=== PATIENT | male | born 2000 | race Hispanic/Latino ===

== ENCOUNTER 2023-08-05 12:04 | Emergency (ER) | payer SELFPAY ==
[2023-08-05] MEDS ORDERED: ONDANSETRON 4 MG/2 ML VIAL ONE (13:47)
[2023-08-05] MEDS ORDERED: NA CHLORIDE 0.9% 1,000 ML ONE (13:47)
[2023-08-05 14:12] LABS: Specific Gravity 1.021 (1.005-1.030); Urine Bilirubin NEGATIVE (Negative); Urine Blood Negative (Negative); Urine Clarity Clear (Clear); Urine Color Light-Yellow (Yellow); Urine Glucose NEGATIVE (Negative); Urine Ketones NEGATIVE (Negative); Urine Microscopic Reflex YN NO UMIC; Urine Nitrite NEGATIVE (Negative); Urine Protein NEGATIVE (Negative); Urine Urobilinogen Normal (Normal)
[2023-08-05 14:15] LABS: Absolute Lymphocytes (CBC) 1.5 K/uL (0.7-4.9); Absolute Monocytes 0.4 K/uL (0.1-1.3); Absolute Neutrophil 5.1 K/uL (1.8-8.0); Basophils % 0.4 % (0-1.3); Eosinophils % 0.5 % (0-4.4); Hemoglobin 14.7 g/dL (13.6-17.9); Lymphocytes % 21.4 % (15.3-44.8); MCH 28.7 pg (27.0-35.0); MCHC 33.4 g/dL (32.0-36.0); MCV 86.1 fL (80-100); MPV 8.7 fL (7.6-11.3); Monocytes % 6.3 % (3.3-12.3); Neutrophils % 71.4 % (41.7-73.7); Platelets 329 thou/uL (152-406); RBC Red Blood Cell Count 5.11 M/uL (4.33-5.43); Red Cell Distribution Width 13.7 % (12.1-15.2)
[2023-08-05 14:31] LABS: Albumin 4.8 g/dL (3.4-5.0); Albumin/Globulin Ratio 1.5 (1.1-1.8); Anion Gap 8.6 mEq/L (5.0-15.0); Bilirubin Total 0.7 mg/dL (0.2-1.0); Globulin 3.2 g/dL (2.3-3.5); Potassium 3.6 mEq/L (3.5-5.1)
--- NOTE | 2023-08-05 15:33 | ER ---
Nurse's Notes [facility] Name: Valentino Leonard Age: 22 yrs Sex: Male : 2000 Arrival Date: 08/05/2023 Time: 12:04 Bed DX4 Private MD: Diagnosis: Noninfective gastroenteritis and colitis, unspecified Presentation: 08/04 12:39 Chief complaint: Patient states: Abdominal pain with N/V/D getting worse since Wednesday ll1 night. No known fever, but cold sweats. Coronavirus screen: Client denies travel out of the [place] in the last 14 days. At this time, the client does not indicate any symptoms associated with coronavirus-19. Ebola Screen: Patient denies travel to an Ebola-affected area in the 21 days before illness onset. Initial Sepsis Screen: Does the patient meet any 2 criteria? No. Patient's initial sepsis screen is negative. Does the patient have a suspected source of infection? No. Patient's initial sepsis screen is negative. Risk Assessment: Do you want to hurt yourself or someone else? Patient reports no desire to harm self or others. Onset of symptoms was July 24, 2023. 12:39 Method Of Arrival: Ambulatory ll1 12:39 Acuity: NAZIA 3 ll1 Triage Assessment: 12:39 General: Appears uncomfortable, Behavior is calm, cooperative, appropriate for age. ll1 Pain: Complains of pain in abdomen Quality of pain is described as aching, crampy. GI: Reports lower abdominal pain, upper abdominal pain, cramping, diarrhea, nausea, vomiting. Historical: - Allergies: 12:38 No Known Allergies; ll1 - Home Meds: 12:38 generic ADHD as needed [Active]; ll1 - PMHx: 12:38 ADD/ADHD; ll1 - PSHx: 12:38 None; ll1 - Immunization history:: Adult Immunizations up to date. - Infectious Disease History:: Denies. - Social history:: Smoking status: Reported history of juuling and/or vaping. Patient denies any tobacco usage or history of. Screenin:[address] [facility] ED Fall Risk Assessment (Adult) History of falling in the last 3 months, jl7 including since admission No falls in past 3 months (0 pts) Confusion or Disorientation No (0 pts) Intoxicated or Sedated No (0 pts) Impaired Gait No (0 pts) Mobility Assist Device Used No (0 pt) Altered Elimination No (0 pt) Score/Fall Risk Level 0 - 2 = Low Risk Oriented to surroundings, Maintained a safe environment. Abuse screen: Denies threats or abuse. Denies injuries from another. Nutritional screening: No deficits noted. Tuberculosis screening: No symptoms or risk factors identified. Assessment: 14:10 General: Appears in no apparent distress. uncomfortable, Behavior is calm, cooperative, jl7 appropriate for age. Pain: Denies pain. Neuro: Level of Consciousness is awake, alert, obeys commands, Oriented to person, place, time, situation. GI: not auscultated not palpated Reports diarrhea, nausea, Pt denies current pain at this time. Reports "I just ate a sandwich in the lobby so I'm probably about to go to the bathroom." Provider notified. Derm: Skin is pink, warm \\T\\ dry. Vital Signs: 12:39 BP 145 / 81; Pulse 81; Resp 17; Temp 97.6; Pulse Ox 99% ; Weight 75.75 kg; Height 5 ft. ll1 9 in. ; Pain 6/10; 14:10 BP 144 / 76; Pulse 62; Resp 15; Pulse Ox 100% ; Pain 0/10; jl7 12:39 Body Mass Index 24.66 (75.75 kg, 175.26 cm) ll1 12:39 Pain Scale: Adult ll1 14:10 Pain Scale: Adult jl7 ED Course: 12:29 Patient arrived in ED. mr 12:41 Triage completed. ll1 12:41 Arm band placed on. ll1 12:56 Raina [facility] FNP-C [facility]. kb 12:56 Samuel Beard MD is Attending Physician. kb 14:10 Patient has correct armband on for positive identification. Provided Education on: jl7 tests. 14:10 Initial lab(s) drawn, by me, sent to lab. Urine collected: clean catch specimen, clear. jl7 Inserted saline lock: 20 gauge in left antecubital area, using aseptic technique. Blood collected. 15:52 Kenneth Lofton RN is Primary Nurse. jl7 15:52 No provider procedures requiring assistance completed. IV discontinued, intact, jl7 bleeding controlled, No redness/swelling at site. Pressure dressing applied. Administered Medications: 14:00 Drug: NS 0.9% IV 1000 ml IV at 1 bolus Per protocol; 1000 mL bolus Route: IV; Rate: 1 jl7 bolus; Site: left antecubital; 15:00 Follow up: Response: No adverse reaction; IV Status: Completed infusion; IV Intake: jl7 1000ml 14:00 Drug: Ondansetron IVP 4 mg IVP once; over 2 minutes Route: IVP; Site: left antecubital; jl7 15:22 Follow up: Response: No adverse reaction jl7 Medication: 14:10 VIS not applicable for this client. jl7 Intake: 15:00 IV: 1000ml; Total: 1000ml. jl7 Outcome: 15:32 Discharge ordered by . jazlyn 15:52 Discharged to home ambulatory, 7 15:52 Condition: stable 15:52 Discharge instructions given to patient, Instructed on discharge instructions, follow up and referral plans. medication usage, Demonstrated understanding of instructions, follow-up care, medications, Prescriptions given X 2, 15:53 Patient left the ED. jl7 Signatures: Raina Garcia, GRANT WRITER-C GRANT WRITER-Clarissa Hilton, Reg Reg mr Kenneth Lofton, RN RN jl7 Marco Conroy RN RN ll1
--- NOTE | 2023-08-05 15:33 | EDPHYS ---
Physician Documentation [facility] Name: Valentino Leonard Age: 22 yrs Sex: Male : 2000 Arrival Date: 08/05/2023 Time: 12:04 Bed DX4 Private MD: ED Physician Samuel Beard HPI: 08/04 14:12 This 22 yrs old Male presents to ER via Ambulatory with complaints of kb Abdominal Pain, Vomiting/Diarrhea. 14:12 Patient is a 22-year-old male who presents for vomiting, diarrhea and abdominal kb cramping that started 6 days ago. Denies fever. States he drank heavily over the weekend so he believes that the symptoms are due to alcohol poisoning. States the symptoms get worse when he is at work in the heat, he is able to eat better at home.. Historical: - Allergies: 12:38 No Known Allergies; ll1 - Home Meds: 12:38 generic ADHD as needed [Active]; ll1 - PMHx: 12:38 ADD/ADHD; ll1 - PSHx: 12:38 None; ll1 - Immunization history:: Adult Immunizations up to date. - Infectious Disease History:: Denies. - Social history:: Smoking status: Reported history of juuling and/or vaping. Patient denies any tobacco usage or history of. ROS: 14:12 Constitutional: As per HPI kb Exam: 14:12 Constitutional: This is a well developed, well nourished patient who is awake, alert, kb and in no acute distress. Head/Face: Normocephalic, atraumatic. ENT: Moist Mucous membranes Cardiovascular: Regular rate Respiratory: Respirations even and unlabored. No increased work of breathing. Talking in full sentences Abdomen/GI: Soft, non-tender. No distention Skin: Warm, dry with normal turgor. Normal color. MS/ Extremity: Pulses equal, no cyanosis. Neurovascular intact. Full, normal range of motion. Neuro: Awake and alert, GCS 15, oriented to person, place, time, and situation. Moves all extremities. Normal gait. Vital Signs: 12:39 BP 145 / 81; Pulse 81; Resp 17; Temp 97.6; Pulse Ox 99% ; Weight 75.75 kg; Height 5 ft. ll1 9 in. ; Pain 6/10; 14:10 BP 144 / 76; Pulse 62; Resp 15; Pulse Ox 100% ; Pain 0/10; jl7 12:39 Body Mass Index 24.66 (75.75 kg, 175.26 cm) ll1 12:39 Pain Scale: Adult ll1 14:10 Pain Scale: Adult jl7 MDM: 12:57 Patient medically screened. kb 14:12 Differential diagnosis: gastritis, gastroesophageal reflux disease, non-specific abd kb pain. Data reviewed: vital signs, nurses notes. 14:53 Counseling: I had a detailed discussion with the patient and/or guardian regarding the kb historical points, exam findings, and any diagnostic results supporting the discharge/admit diagnosis, lab results, the need for outpatient follow up, a family practitioner, to return to the emergency department if symptoms worsen or persist or if there are any questions or concerns that arise at home. 14:55 Test considered but Not performed: CT: ct considered but vss, labs reassuring, pt has kb no abd tenderness, tolerating po intake. Pt ate sandwich in lobby prior to medications. 08/04 12:58 Order name: CBC with Diff; Complete Time: 14:20 kb 08/04 12:58 Order name: CMP; Complete Time: 14:31 kb 08/04 12:58 Order name: Lipase; Complete Time: 14:31 kb 08/04 12:58 Order name: Urinalysis w/ reflexes; Complete Time: 14:12 kb 08/04 12:58 Order name: IV Saline Lock; Complete Time: 14:10 kb 08/04 12:58 Order name: Labs collected and sent; Complete Time: 14:10 kb 08/04 14:57 Order name: Misc. Order: bring back to chairs for discharge please; Complete Time: 15:22kb Administered Medications: 14:00 Drug: NS 0.9% IV 1000 ml IV at 1 bolus Per protocol; 1000 mL bolus Route: IV; Rate: 1 jl7 bolus; Site: left antecubital; 15:00 Follow up: Response: No adverse reaction; IV Status: Completed infusion; IV Intake: jl7 1000ml 14:00 Drug: Ondansetron IVP 4 mg IVP once; over 2 minutes Route: IVP; Site: left antecubital; jl7 15:22 Follow up: Response: No adverse reaction jl7 Disposition: 18:55 Co-signature as Attending Physician, Samuel Beard MD I reviewed the patient's care rt provided by the Advanced Practice Provider and agree with the diagnosis and treatment plan. Disposition Summary: 08/05/23 15:32 Discharge Ordered Notes: Location: Home kb Condition: Stable kb Diagnosis - Noninfective gastroenteritis and colitis, unspecified kb Followup: kb - With: Emergency Department - When: As needed - Reason: Worsening of condition Followup: kb - With: Private Physician - When: 2 - 3 days - Reason: Recheck today's complaints, Continuance of care, Re-evaluation by your physician Discharge Instructions: - Food Choices to Help Relieve Diarrhea, Adult kb - Viral Gastroenteritis, Adult, [id number] kb - Discharge Summary Sheet ll1 Forms: - Medication Reconciliation Form kb - Antibiotic Education kb - Prescription Opioid Use kb - Patient Portal Instructions kb - Leadership Thank You Letter kb - Work release form ll1 Prescriptions: - Zofran 4 mg Oral tablet - take 1 tablet ORAL route every 6 hours As needed; 12 tablet; Refills: 0, kb Product Selection Permitted - dicyclomine 20 mg Oral tablet - take 1 tablet ORAL route 4 times per day As needed; 20 tablet; Refills: 0, kb Product Selection Permitted Signatures: Dispatcher [employer] EDMS Raina Garcia, CLINICAL BUSINESS MANAGER-C CLINICAL BUSINESS MANAGER-Kenneth Mchugh, RN RN jl7 Marco Conroy RN RN ll1 Samuel Beard MD MD rt Corrections: (The following items were deleted from the chart) 12:58 12:58 CBC+H.LAB.BRZ ordered. EDMS EDMS 12:58 12:58 COMPREHENSIVE METABOLIC PANEL+C.LAB.BRZ ordered. EDMS EDMS 12:58 12:58 LIPASE+C.LAB.BRZ ordered. EDMS EDMS 12:58 12:58 Urinalysis+U.LAB.BRZ ordered. EDMS EDMS
[2023-08-05 16:04] VITALS: BP 144/76; TEMP 97.6; O2SAT 100
== END 2023-08-05 15:53 | disposition home or self-care (01) ==
LOC: ER 12:04
DX: K52.9 Noninfective gastroenteritis and colitis, unspecified (principal); F17.290 Nicotine dependence, other tobacco product, uncomplicated
CPT/HCPCS: 36415; 80053; 81003; 83690; 85025; 96361; 96374; 99284; J2405; J7030

== ENCOUNTER 2023-10-12 12:31 | Emergency (ER) | payer SELFPAY ==
--- NOTE | 2023-10-12 13:20 | ER ---
Nurse's Notes [facility] Name: Valentino Leonard Age: 22 yrs Sex: Male : 2000 Arrival Date: 10/12/2023 Time: 12:31 Bed DX1 Private MD: Diagnosis: Migraine without aura, not intractable Presentation: 10/11 12:50 Chief complaint: Patient states: HEADACHE STARTED TODAY. HX OF MIGRAINES HAS NOT TAKEN db ANYTHING. JOB SENT HOME AND NEEDS WORK NOTE. INJURE RIGHT SHOULDER WEDNESDAY AND IS CAUSING SOME DISCOMFORT. NEEDS EVAL. Coronavirus screen: Client denies travel out of the [place] in the last 14 days. At this time, the client does not indicate any symptoms associated with coronavirus-19. Ebola Screen: Patient negative for fever greater than or equal to 101.5 degrees Fahrenheit, and additional compatible Ebola Virus Disease symptoms Patient denies exposure to infectious person. Patient denies travel to an Ebola-affected area in the 21 days before illness onset. No symptoms or risks identified at this time. Initial Sepsis Screen: Does the patient meet any 2 criteria? No. Patient's initial sepsis screen is negative. Does the patient have a suspected source of infection? No. Patient's initial sepsis screen is negative. Risk Assessment: Do you want to hurt yourself or someone else? Patient reports no desire to harm self or others. Onset of symptoms was October 12, 2023. 12:50 Method Of Arrival: Ambulatory db 12:50 Acuity: NAZIA 4 db Triage Assessment: 12:52 Headache History: The patient has had previous headaches and this one is similar to db previous episodes. General: Appears in no apparent distress. comfortable, Behavior is calm, cooperative. Pain: Complains of pain in head. Neuro: Level of Consciousness is awake, alert, obeys commands, Oriented to person, place, time, situation. Historical: - Allergies: 12:52 No Known Allergies; db - PMHx: 12:52 ADD/ADHD; db - Immunization history:: Adult Immunizations unknown. - Infectious Disease History:: Denies. - Social history:: Smoking status: Reported history of juuling and/or vaping. Vital Signs: 12:50 BP 143 / 97; Pulse 68; Resp 16; Temp 98.7; Pulse Ox 97% ; Weight 79.38 kg; Height 5 ft. db 9 in. ; Pain 5/10; 12:50 Body Mass Index 25.84 (79.38 kg, 175.26 cm) db 12:50 Pain Scale: Adult db Amarilis Coma Score: 13:19 Eye Response: spontaneous(4). Motor Response: obeys commands(6). Verbal Response: kb oriented(5). Total: 15. ED Course: 12:34 Patient arrived in ED. mr 12:52 Triage completed. db 12:54 Arm band placed on Patient placed in waiting room. db 12:56 Raina Garcia FNP-C [facility]. kb 12:56 Oniel Mcdaniel MD is Attending Physician. kb 13:34 Juany Ramirez, WALTER is Primary Nurse. iw Administered Medications: 13:44 Drug: Acetaminophen PO 650 mg PO once Route: PO; iw 14:00 Follow up: Response: No adverse reaction iw 13:44 Drug: Ibuprofen PO 400 mg PO once Route: PO; iw 16:22 Follow up: Response: No adverse reaction iw Outcome: 13:19 Discharge ordered by MD. kb 13:44 Patient left the ED. iw Signatures: Raina Garcia FNP-C HOME CARE CONSULTANT-Ckb Clarissa Harding, Reg Reg mr Juany Ramirez, RN RN iw Miriam Lebron, WALTER RN db
--- NOTE | 2023-10-12 13:20 | EDPHYS ---
Physician Documentation [facility] Name: Valentino Leonard Age: 22 yrs Sex: Male : 2000 Arrival Date: 10/12/2023 Time: 12:31 Bed DX1 Private MD: ED Physician Oniel Mcdaniel HPI: 10/11 13:17 This 22 yrs old Male presents to ER via Ambulatory with complaints of Headache.kb 13:17 Pt is a 22 year old male with a history of migraines who presents for a migraine. kb States "I just came to get a work note so I don't get in trouble." States he injured his right shoulder at work 5 days ago when something heavy fell onto it, but had that x-rayed already and it is good. Does not want IV or IM medications. . Historical: - Allergies: 12:52 No Known Allergies; db - PMHx: 12:52 ADD/ADHD; db - Immunization history:: Adult Immunizations unknown. - Infectious Disease History:: Denies. - Social history:: Smoking status: Reported history of juuling and/or vaping. ROS: 13:19 Constitutional: As per HPI kb Exam: 13:19 Constitutional: This is a well developed, well nourished patient who is awake, alert, kb and in no acute distress. Head/Face: Normocephalic, atraumatic. ENT: Moist Mucous membranes Cardiovascular: Regular rate Respiratory: Respirations even and unlabored. No increased work of breathing. Talking in full sentences Abdomen/GI: Soft, non-tender. No distention Skin: Warm, dry with normal turgor. Normal color. MS/ Extremity: Pulses equal, no cyanosis. Neurovascular intact. Full, normal range of motion. Neuro: Awake and alert, GCS 15, oriented to person, place, time, and situation. Moves all extremities. Normal gait. Vital Signs: 12:50 BP 143 / 97; Pulse 68; Resp 16; Temp 98.7; Pulse Ox 97% ; Weight 79.38 kg; Height 5 ft. db 9 in. ; Pain 5/10; 12:50 Body Mass Index 25.84 (79.38 kg, 175.26 cm) db 12:50 Pain Scale: Adult db Amarilis Coma Score: 13:19 Eye Response: spontaneous(4). Motor Response: obeys commands(6). Verbal Response: kb oriented(5). Total: 15. MDM: 12:57 Patient medically screened. kb 13:19 Differential diagnosis: migraine, tension headache. Data reviewed: vital signs, nurses kb notes. Counseling: I had a detailed discussion with the patient and/or guardian regarding the historical points, exam findings, and any diagnostic results supporting the discharge/admit diagnosis, the need for outpatient follow up, a family practitioner, to return to the emergency department if symptoms worsen or persist or if there are any questions or concerns that arise at home. Administered Medications: 13:44 Drug: Acetaminophen PO 650 mg PO once Route: PO; iw 14:00 Follow up: Response: No adverse reaction iw 13:44 Drug: Ibuprofen PO 400 mg PO once Route: PO; iw 16:22 Follow up: Response: No adverse reaction iw Disposition: 16:35 Co-signature as Attending Physician, Oniel Mcdaniel MD I reviewed the patient's care rn provided by the Advanced Practice Provider and agree with the diagnosis and treatment plan. Disposition Summary: 10/12/23 13:19 Discharge Ordered Notes: Location: Home kb Condition: Stable kb Diagnosis - Migraine without aura, not intractable kb Followup: kb - With: Emergency Department - When: As needed - Reason: Worsening of condition Followup: kb - With: Private Physician - When: 2 - 3 days - Reason: Recheck today's complaints, Continuance of care, Re-evaluation by your physician Discharge Instructions: - Discharge Summary Sheet kb - Migraine Headache, [id number] kb Forms: - Work release form kb - Medication Reconciliation Form kb - Antibiotic Education kb - Prescription Opioid Use kb - Patient Portal Instructions kb - Leadership Thank You Letter kb Signatures: Raina Garcia FNP-C ASSOCIATE ENTERTAINMENT EDITOR-Juany Ojeda, RN Oniel Alvarez MD MD rn Benton, Danielle, RN RN db
[2023-10-12] MEDS ORDERED: IBUPROFEN 200 MG TAB PO ONE (13:38)
[2023-10-12] MEDS ORDERED: ACETAMINOPHEN 325 MG TABLET ONE (13:39)
[2023-10-12 13:48] VITALS: BP 143/97; TEMP 98.7; O2SAT 97
== END 2023-10-12 13:44 | disposition home or self-care (01) ==
LOC: ER 12:31
DX: G43.009 Migraine without aura, not intractable, without status migrainosus (principal)
CPT/HCPCS: 99282

== ENCOUNTER 2023-11-11 14:21 | Emergency (ER) | payer SELFPAY ==
--- NOTE | 2023-11-11 14:51 | ER ---
Nurse's Notes [facility] Name: Valentino Leonard Age: 22 yrs Sex: Male : 2000 Arrival Date: 11/11/2023 Time: 14:21 Bed DX3 Private MD: Diagnosis: Nausea with vomiting, unspecified;Diarrhea, unspecified Presentation: 11/10 14:29 Chief complaint: Patient states: Wants work note. Had N/V. Feels better. Coronavirus ll1 screen: Client denies travel out of the [place] in the last 14 days. At this time, the client does not indicate any symptoms associated with coronavirus-19. Ebola Screen: Patient denies travel to an Ebola-affected area in the 21 days before illness onset. Initial Sepsis Screen: Does the patient meet any 2 criteria? No. Patient's initial sepsis screen is negative. Does the patient have a suspected source of infection? No. Patient's initial sepsis screen is negative. Risk Assessment: Do you want to hurt yourself or someone else? Patient reports no desire to harm self or others. Onset of symptoms was November 11, 2023. 14:29 Method Of Arrival: Ambulatory ll1 14:29 Acuity: NAZIA 5 ll1 Historical: - Allergies: 14:30 No Known Allergies; ll1 - PMHx: 14:30 ADD/ADHD; ll1 - PSHx: 14:30 None; ll1 - Immunization history:: Adult Immunizations up to date. - Social history:: Smoking status: Patient/guardian denies using tobacco. - Family history:: not pertinent. - Hospitalizations: : No recent hospitalization is reported. Screenin:58 [facility] ED Fall Risk Assessment (Adult) History of falling in the last 3 months, ss including since admission No falls in past 3 months (0 pts) Confusion or Disorientation No (0 pts) Intoxicated or Sedated No (0 pts) Impaired Gait No (0 pts) Mobility Assist Device Used No (0 pt) Altered Elimination No (0 pt) Score/Fall Risk Level 0 - 2 = Low Risk Oriented to surroundings, Maintained a safe environment. Abuse screen: Denies threats or abuse. Denies injuries from another. Nutritional screening: No deficits noted. Tuberculosis screening: Never had TB. Assessment: 14:58 General: Appears in no apparent distress. comfortable, Behavior is calm, cooperative. ss Pain: Denies pain. Neuro: Level of Consciousness is awake, alert, obeys commands. Respiratory: Airway is patent Respiratory effort is even, unlabored, Respiratory pattern is regular. Derm: Skin is pink, warm \T\ dry. normal. Vital Signs: 14:29 BP 149 / 80; Pulse 76; Resp 16; Temp 97.4; Pulse Ox 100% ; Weight 79.38 kg; Height 5 ll1 ft. 9 in. ; Pain 02/17; 14:29 Body Mass Index 25.84 (79.38 kg, 175.26 cm) 1 14:29 Pain Scale: Adult ll1 ED Course: 14:26 Patient arrived in ED. mg5 14:29 Oniel Mcdaniel MD is Attending Physician. rn 14:30 Triage completed. 1 14:58 Lashawn Matias, RN is Primary Nurse. ss 14:58 Patient has correct armband on for positive identification. ss Administered Medications: No medications were administered Medication: 14:58 VIS not applicable for this client. ss Outcome: 14:51 Discharge ordered by . rn 14:58 Discharged to home ambulatory, 14:58 Condition: good 14:58 Discharge instructions given to patient, Instructed on discharge instructions, follow up and referral plans. Demonstrated understanding of instructions, follow-up care, 15:00 Patient left the ED. ss Signatures: Oniel Mcdaniel MD MD rn Blanchard, Shelby, WALTER RN ss Marco Conroy RN RN [facility] Talia Garvin mg5
--- NOTE | 2023-11-11 14:51 | EDPHYS ---
Physician Documentation [facility] Name: Valentino Leonard Age: 22 yrs Sex: Male : 2000 Arrival Date: 11/11/2023 Time: 14:21 Bed DX3 Private MD: ED Physician Oniel Mcdaniel HPI: 11/10 14:48 This 22 yrs old Male presents to ER via Ambulatory with complaints of work rn note. 14:48 The patient presents to the emergency department with nausea, vomiting, diarrhea. rn Onset: The symptoms/episode began/occurred last night. Possible causes: unknown. Severity of symptoms: At their worst the symptoms were mild in the emergency department the symptoms have resolved. The patient has experienced similar episodes in the past. Patient reports started getting sick last night with nausea/vomiting/diarrhea. Denies abdominal pain. Now back to normal. Patient here for work clearance note. Does not want anything else done, asymptomatic currently.. Historical: - Allergies: 14:30 No Known Allergies; ll1 - PMHx: 14:30 ADD/ADHD; ll1 - PSHx: 14:30 None; ll1 - Immunization history:: Adult Immunizations up to date. - Social history:: Smoking status: Patient/guardian denies using tobacco. - Family history:: not pertinent. - Hospitalizations: : No recent hospitalization is reported. ROS: 14:48 Constitutional: Negative for fever, chills, and weight loss, Neck: Negative for injury, rn pain, and swelling, Cardiovascular: Negative for chest pain, palpitations, and edema, Respiratory: Negative for shortness of breath, cough, wheezing, and pleuritic chest pain, Abdomen/GI: Negative for abdominal pain, nausea, vomiting, diarrhea, and constipation, Back: Negative for injury and pain, MS/Extremity: Negative for injury and deformity, Skin: Negative for injury, rash, and discoloration, Neuro: Negative for headache, weakness, numbness, tingling, and seizure, Exam: 14:48 Constitutional: This is a well developed, well nourished patient who is awake, alert, rn and in no acute distress. Cardiovascular: Regular rate and rhythm . No pulse deficits. Respiratory: No increased work of breathing, no retractions or nasal flaring. Abdomen/GI: Soft, non-tender Vital Signs: 14:29 BP 149 / 80; Pulse 76; Resp 16; Temp 97.4; Pulse Ox 100% ; Weight 79.38 kg; Height 5 ll1 ft. 9 in. ; Pain 02/17; 14:29 Body Mass Index 25.84 (79.38 kg, 175.26 cm) ll1 14:29 Pain Scale: Adult ll1 MDM: 14:29 Patient medically screened. rn 14:48 Differential diagnosis: viral gastroenteritis, gastroenteritis. Data reviewed: vital rn signs, nurses notes, and as a result, I will discharge patient. Counseling: I had a detailed discussion with the patient and/or guardian regarding the historical points, exam findings, and any diagnostic results supporting the discharge/admit diagnosis, the need for outpatient follow up, to return to the emergency department if symptoms worsen or persist or if there are any questions or concerns that arise at home. Special discussion: I discussed with the patient/guardian in detail that at this point there is no indication for admission to the hospital. It is understood, however, that if the symptoms persist or worsen the patient needs to return immediately for re-evaluation. Administered Medications: No medications were administered Disposition Summary: 11/11/23 14:51 Discharge Ordered Notes: Location: Home rn Problem: new rn Symptoms: are resolved rn Condition: Stable rn Diagnosis - Nausea with vomiting, unspecified rn - Diarrhea, unspecified rn Followup: rn - With: Private Physician - When: As needed - Reason: Recheck today's complaints, Re-evaluation by your physician Discharge Instructions: - Diarrhea, Adult rn - Nausea and Vomiting, Adult rn - Discharge Summary Sheet ll1 Forms: - Medication Reconciliation Form rn - Antibiotic promotions intern - Prescription Opioid Use rn - Patient Portal Instructions rn - Leadership Thank You Letter rn - Work release form ll1 Signatures: Oniel Mcdaniel MD MD rn Lewis, Lynsay, RN RN 1
[2023-11-12 04:03] VITALS: BP 149/80; TEMP 97.4; O2SAT 100
== END 2023-11-11 15:00 | disposition home or self-care (01) ==
LOC: ER 14:21
DX: R11.2 Nausea with vomiting, unspecified (principal); R19.7 Diarrhea, unspecified
CPT/HCPCS: 99282

== ENCOUNTER 2024-01-17 12:31 | Emergency (ER) | payer SELFPAY ==
--- NOTE | 2024-01-17 14:36 | RAD REPORT ---
EXAMINATION: XR Lumbar Spine 3 Views CLINICAL INDICATION: Male, 23 years old. [facility] MAIN PAIN Bed: TECHNIQUE: AP, lateral, focused lateral lumbosacral views of the lumbar spine were obtained. COMPARISON: 05/06/2022 FINDINGS: For purposes of this dictation, it is assumed that there are 5 lumbar type vertebral bodies. ALIGNMENT: There is normal alignment of the lumbar spine. Straightening of normal lumbar lordosis cou ld be positional or secondary to muscle spasm. BONES: Vertebral bodies are normal in height. No aggressive osseous lesions. DISCS: Disc heights are maintained. IMPRESSION: No acute lumbar spine abnormality. Straightening of normal lumbar lordosis.
--- NOTE | 2024-01-17 14:53 | ER ---
Nurse's Notes [facility] Name: Valentino Leonard Age: 23 yrs Sex: Male : 2000 Arrival Date: 01/17/2024 Time: 12:31 Bed 12 Private MD: Diagnosis: Low back pain Presentation: 01/16 13:43 Chief complaint: Low back pain 10 after lifting heavy box yesterday. Coronavirus hb screen: At this time, the client does not indicate any symptoms associated with coronavirus-19. Ebola Screen: No symptoms or risks identified at this time. Initial Sepsis Screen: Does the patient meet any 2 criteria? No. Patient's initial sepsis screen is negative. Does the patient have a suspected source of infection? No. Patient's initial sepsis screen is negative. Risk Assessment: Do you want to hurt yourself or someone else? Patient reports no desire to harm self or others. Onset of symptoms was January 16, 2024. 13:43 Method Of Arrival: Ambulatory hb 13:43 Acuity: NAZIA 4 hb Historical: - Allergies: 13:44 No Known Allergies; hb - Home Meds: 13:44 generic ADHD as needed [Active]; hb - PMHx: 13:44 ADD/ADHD; hb - PSHx: 13:44 None; hb - Immunization history:: Adult Immunizations up to date. - Infectious Disease History:: Denies. - Social history:: Smoking status: Patient/guardian denies using tobacco. Screenin:[address] [facility] ED Fall Risk Assessment (Adult) History of falling in the last 3 months, kc6 including since admission No falls in past 3 months (0 pts) Confusion or Disorientation No (0 pts) Intoxicated or Sedated No (0 pts) Impaired Gait No (0 pts) Mobility Assist Device Used No (0 pt) Altered Elimination No (0 pt) Score/Fall Risk Level 0 - 2 = Low Risk Oriented to surroundings, Maintained a safe environment. Abuse screen: Denies threats or abuse. Denies injuries from another. Nutritional screening: No deficits noted. Tuberculosis screening: No symptoms or risk factors identified. Assessment: 15:55 General: Appears in no apparent distress. uncomfortable, well groomed, well developed, kc6 Behavior is calm, cooperative, appropriate for age. Pain: Complains of pain in left low back and right low back. Neuro: Level of Consciousness is awake, alert, obeys commands, Oriented to person, place, time, situation, Appropriate for age. Cardiovascular: Capillary refill < 3 seconds. Respiratory: Airway is patent Trachea midline Respiratory effort is even, unlabored, Respiratory pattern is regular, symmetrical. GI: No signs and/or symptoms were reported involving the gastrointestinal system. : No signs and/or symptoms were reported regarding the genitourinary system. EENT: No signs and/or symptoms were reported regarding the EENT system. Derm: No signs and/or symptoms reported regarding the dermatologic system. Skin is intact, is healthy with good turgor, Skin is pink, warm \T\ dry. Musculoskeletal: No signs and/or symptoms reported regarding the musculoskeletal system. Circulation, motion, and sensation intact. Range of motion: intact in all extremities. Vital Signs: 13:43 BP 142 / 76; Pulse 77; Resp 16; Temp 97.5; Pulse Ox 100% on R/A; Weight 79.38 kg; hb Height 5 ft. 9 in. ; Pain 7/10; 15:56 BP 130 / 72; Pulse 75; Resp 17 S; Pulse Ox 99% on R/A; kc6 13:43 Body Mass Index 25.84 (79.38 kg, 175.26 cm) hb 13:43 Pain Scale: Adult hb ED Course: 12:34 Patient arrived in ED. mr 12:43 Tyrese Franco PA is PHCP. cp 12:44 Oniel Mcdaniel MD is Attending Physician. cp 13:38 XRAY Lumbar Spine (3 Views) In Process Unspecified. EDMS 13:44 Triage completed. hb 13:44 Arm band placed on. hb 15:36 Maria Antonia Back, RN is Primary Nurse. kc6 15:54 Patient has correct armband on for positive identification. Bed in low position. Call kc6 light in reach. Side rails up X 1. Adult w/ patient. Pulse ox on. NIBP on. Door closed. Noise minimized. Lights dimmed. Pillow given. 16:00 No provider procedures requiring assistance completed. Patient did not have IV access kc6 during this emergency room visit. Administered Medications: 15:53 Not Given (Patient Refused): [id number] mg IM once kc6 15:53 Not Given (Patient Refused): diazepam5 mg IM once kc6 15:53 Drug: Lidoderm Topical Patch 5 % (700 mg/patch) 1 patches Topical once; leave on for 12 kc6 hours; cover most painful area; may cut into smaller pieces Route: Topical; Site: affected area; 16:00 Follow up: Response: No adverse reaction kc6 Medication: 16:00 VIS not applicable for this client. kc6 Outcome: 14:52 Discharge ordered by . mikayla 16:00 Discharged to home ambulatory, with significant other, kc6 16:00 Condition: good 16:00 Discharge instructions given to patient, significant other, Instructed on discharge instructions, follow up and referral plans. no drinking with medication, no driving heavy equipment, medication usage, Demonstrated understanding of instructions, follow-up care, medications, Prescriptions given X 2, 16:00 Patient left the ED. kc6 Signatures: Dispatcher [employer] Clarissa Cancino, David Hernandez mr Tyrese Franco PA PA cp Baxter, Heather, Maria Antonia Helm RN, RN RN kc6
--- NOTE | 2024-01-17 14:53 | EDPHYS ---
Physician Documentation [facility] Name: Valentino Leonard Age: 23 yrs Sex: Male : 2000 Arrival Date: 01/17/2024 Time: 12:31 Bed 12 Private MD: ED Physician Oniel Mcdaniel HPI: 01/16 13:25 This 23 yrs old Male presents to ER via Unassigned with complaints of Back cp Pain. 13:25 The patient presents with pain that is acute. The symptoms are located in the low back. cp Onset: The symptoms/episode began/occurred yesterday. The pain does not radiate. The problem was sustained pain started after lifting box of Sisi lights and putting up Strawberry lights. 13:25 Associated signs and symptoms: Pertinent negatives: abdominal pain, constipation, cp dysuria, fever, hematuria, incontinence, numbness, tingling, urinary retention, weakness. 13:25 Severity of symptoms: in the emergency department the symptoms are unchanged, despite cp home interventions. Historical: - Allergies: 13:44 No Known Allergies; hb - Home Meds: 13:44 generic ADHD as needed [Active]; hb - PMHx: 13:44 ADD/ADHD; hb - PSHx: 13:44 None; hb - Immunization history:: Adult Immunizations up to date. - Infectious Disease History:: Denies. - Social history:: Smoking status: Patient/guardian denies using tobacco. ROS: 13:30 Back: Positive for pain at rest, pain with movement, of the low back, cp 13:30 Eyes: Negative for injury, pain, redness, and discharge, cp 13:30 Constitutional: Negative for body aches, chills, fever, poor PO intake, 13:30 ENT: Negative for ear pain, sore throat, difficulty swallowing, difficulty handling secretions, 13:30 Respiratory: Negative for cough, shortness of breath, wheezing, 13:30 Abdomen/GI: Negative for abdominal pain, nausea, vomiting, and diarrhea, constipation, bowel incontinence, 13:30 : Negative for urinary symptoms, hematuria, difficulty urinating, bladder incontinence, testicular pain 13:30 Neuro: Negative for headache, numbness, tingling, weakness, 13:30 All other systems are negative, Exam: 13:35 Constitutional: The patient appears in no acute distress, alert, awake, non-toxic, well cp developed, well nourished, uncomfortable, 13:35 Head/Face: Normocephalic, atraumatic. cp 13:35 Neck: ROM/movement: is normal, is supple, without pain, no range of motions limitations, 13:35 Chest/axilla: Inspection: normal, 13:35 Cardiovascular: Rate: normal, Rhythm: regular, 13:35 Respiratory: the patient does not display signs of respiratory distress, Respirations: normal, no use of accessory muscles, no retractions, labored breathing, is not present, Breath sounds: are clear throughout, no decreased breath sounds, no stridor, no wheezing, 13:35 Abdomen/GI: Inspection: abdomen appears normal, Palpation: abdomen is soft and non-tender, in all quadrants, 13:35 Back: pain, that is moderate, of the low back area and mid back area, ROM is painful, with all movement, Straight leg raises: of both lower extremities does not illicit pain, 13:35 Neuro: Motor: moves all fours, strength is normal, Sensation: is normal, Gait: is steady, Vital Signs: 13:43 BP 142 / 76; Pulse 77; Resp 16; Temp 97.5; Pulse Ox 100% on R/A; Weight 79.38 kg; hb Height 5 ft. 9 in. ; Pain 7/10; 15:56 BP 130 / 72; Pulse 75; Resp 17 S; Pulse Ox 99% on R/A; kc6 13:43 Body Mass Index 25.84 (79.38 kg, 175.26 cm) hb 13:43 Pain Scale: Adult hb MDM: 13:43 Medical Screening Exam initiated cp 14:00 Differential diagnosis: Cholelithiasis Pyelonephritis spinal injury, sprain, cp Ureterolithiasis bulging disc. 14:52 Data reviewed: vital signs, nurses notes, radiologic studies, plain films, and as a cp result, I will discharge patient. 14:52 I considered the following discharge prescriptions or medication management in the cp emergency department Medications were administered in the Emergency Department. See MAR. Counseling: I had a detailed discussion with the patient and/or guardian regarding the historical points, exam findings, and any diagnostic results supporting the discharge/admit diagnosis, radiology results, the need for outpatient follow up, a family practitioner, to return to the emergency department if symptoms worsen or persist or if there are any questions or concerns that arise at home. Response to treatment: the patient's symptoms have mildly improved after treatment, and as a result, I will discharge patient. 01/16 13:25 Order name: VIKA Lumbar Spine (3 Views); Complete Time: 14:52 cp Administered Medications: 15:53 Not Given (Patient Refused): [id number] mg IM once kc6 15:53 Not Given (Patient Refused): diazepam5 mg IM once kc6 15:53 Drug: Lidoderm Topical Patch 5 % (700 mg/patch) 1 patches Topical once; leave on for 12 kc6 hours; cover most painful area; may cut into smaller pieces Route: Topical; Site: affected area; 16:00 Follow up: Response: No adverse reaction kc6 Disposition: 19:22 Co-signature as Attending Physician, Oniel Mcdaniel MD I reviewed the patient's care rn provided by the Advanced Practice Provider and agree with the diagnosis and treatment plan. Disposition Summary: 01/17/24 14:52 Discharge Ordered Notes: Location: Home cp Problem: new cp Symptoms: have improved cp Condition: Stable cp Diagnosis - Low back pain cp Followup: cp - With: Private Physician - When: 2 - 3 days - Reason: Recheck today's complaints Discharge Instructions: - Discharge Summary Sheet cp - Acute Back Pain, Adult cp - Heat Therapy cp - Back Exercises cp Forms: - Medication Reconciliation Form cp - Antibiotic Education cp - Prescription Opioid Use cp - Patient Portal Instructions cp - Leadership Thank You Letter cp - Work release form kc6 Prescriptions: - Anaprox DS 550 mg Oral Tablet - take 1 tablet ORAL route every 12 hours As needed; 20 tablet; Refills: 0, cp Product Selection Permitted - Cyclobenzaprine 10 mg Oral tablet - take 1 tablet ORAL route every 8 hours As needed; 20 tablet; Refills: 0, cp Product Selection Permitted Signatures: Dispatcher [employer] EDOniel Mckay MD MD rn Page, Corey, PA PA cp Jazlyn Sepulveda RN RN hb Campbell, Kaitlyn, RN RN kc6 Corrections: (The following items were deleted from the chart) 13:25 13:25 Lumbar Spine 3 Views+[id number] ordered. EDKS EDMS 01/17 13:10 13:09 Back: Positive for pain at rest, pain with movement, of the low back, cp cp
[2024-01-17] MEDS ORDERED: DIAZEPAM 10 MG/2 ML INJ SYRINGE ONE (15:45)
[2024-01-17] MEDS ORDERED: LIDOCAINE 4% PATCH ONE (15:47)
[2024-01-17] MEDS ORDERED: KETOROLAC 30 MG/ML INJ ONE (15:47)
[2024-01-17 19:34] VITALS: TEMP 97.5
[2024-01-17 19:35] VITALS: BP 130/72; O2SAT 99
== END 2024-01-17 16:00 | disposition home or self-care (01) ==
LOC: ER 12:31
DX: M54.50 Low back pain, unspecified (principal)
CPT/HCPCS: 72100; 99283; J2003; J3360

== ENCOUNTER 2024-05-02 18:39 | Emergency (ER) | payer SELFPAY ==
[2024-05-02] MEDS ORDERED: TDAP (DIPHTH,PERTUSS(ACELL),TET VAC) 0.5 ML VIAL IMVAC ONE (19:25)
[2024-05-02] MEDS ORDERED: LIDOCAINE 1% 20 ML MDV ONE (19:25)
--- NOTE | 2024-05-02 20:54 | EDPHYS ---
Physician Documentation [facility] Name: Valentino Leonard Age: 23 yrs Sex: Male : 2000 Arrival Date: 05/02/2024 Time: 18:39 Bed 12 Private MD: ED Physician Thai Almonte HPI: 05/02 22:11 This 23 yrs old Male presents to ER via Ambulatory with complaints of kb Laceration To Hand. 22:11 Patient is a 23-year-old male who presents for laceration to left hand. States he was kb working on his car, slipped and hit his hand on the exhaust causing laceration. Denies any other injury or pain.. Historical: - Allergies: 19:13 No Known Allergies; me1 - PMHx: 19:13 ADD/ADHD; me1 - PSHx: 19:13 None; me1 - Immunization history:: Adult Immunizations unknown, Last tetanus immunization: unknown. - Infectious Disease History:: Denies. - Social history:: Smoking status: Patient reports use of chewing tobacco. ROS: 22:11 Constitutional: As per HPI kb Exam: 22:11 Constitutional: This is a well developed, well nourished patient who is awake, alert, kb and in no acute distress. Head/Face: Normocephalic, atraumatic. ENT: Moist Mucous membranes Cardiovascular: Regular rate Respiratory: Respirations even and unlabored. No increased work of breathing. Talking in full sentences MS/ Extremity: Pulses equal, no cyanosis. Neurovascular intact. Full, normal range of motion. Neuro: Awake and alert, GCS 15, oriented to person, place, time, and situation. 22:11 Skin: injury, laceration(s), the wound is approximately 2 cm(s), of the dorsum of left kb hand, that can be described as clean, no foreign body, linear, without bleeding, Vital Signs: 19:11 BP 132 / 83; Pulse 71; Resp 17; Temp 98.3; Pulse Ox 97% ; Weight 78.93 kg; Height 5 ft. me1 9 in. ; Pain 3/10; 19:11 Body Mass Index 25.70 (78.93 kg, 175.26 cm) me1 19:11 Pain Scale: Adult me1 Laceration: 20:52 Wound Repair of 2cm ( 0.8in ) subcutaneous laceration to dorsum of left hand. Linear kb shaped.. Distal neuro/vascular/tendon intact. Anesthesia: Wound infiltrated with 2 mls of 1% lidocaine. Wound prep: Extensive cleansing with hibiclenz by me, Wound irrigation with saline by me. Skin closed with 3 4-0 Prolene using simple sutures and sterile technique. Patient tolerated well. MDM: 18:58 Medical Screening Exam initiated kb 20:52 Differential diagnosis: superficial laceration, tendon injury, vascular injury. Data kb reviewed: vital signs, nurses notes. Counseling: I had a detailed discussion with the patient and/or guardian regarding the historical points, exam findings, and any diagnostic results supporting the discharge/admit diagnosis, the need for outpatient follow up, a family practitioner, to return to the emergency department if symptoms worsen or persist or if there are any questions or concerns that arise at home. 05/02 19:18 Order name: Dressing - Wound; Complete Time: 19:49 kb 05/02 19:18 Order name: Gloves, Sterile; Complete Time: 19:49 kb 05/02 19:18 Order name: Prolene, Sutures; Complete Time: 19:49 kb 05/02 19:18 Order name: Setup Suture Tray; Complete Time: 19:49 kb Administered Medications: 19:49 Drug: Boostrix Tdap IM 0.5 ml IM once; as a single dose Route: IM; Site: left deltoid; cm10 21:00 Follow up: Response: (VIS) Vaccine information sheet provided today. Questions and/or cm10 concerns addressed. VIS edition date: Sep 13, 2020.; No adverse reaction 21:00 Drug: Lidocaine Infiltration (1 %) 1 vials 5 ml Infiltration once; to bedside {Note: cm10 GIVEN BY PROVDIER..} Volume: 5 ml; Route: Infiltration; Disposition Summary: 05/02/24 20:54 Discharge Ordered Condition: Stable kb Diagnosis - Laceration without foreign body of left hand kb Followup: kb - With: Emergency Department - When: As needed - Reason: Worsening of condition Followup: kb - With: Private Physician - When: 2 - 3 days - Reason: Recheck today's complaints, Continuance of care, Re-evaluation by your physician Discharge Instructions: - Discharge Summary Sheet kb - Laceration Care, Adult, [id number] kb Forms: - Work release form kb - Medication Reconciliation Form kb - Antibiotic Education kb - Prescription Opioid Use kb - Patient Portal Instructions kb - Leadership Thank You Letter kb Signatures: Raina Garcia FNP-C FNP-Ludy Reid RN RN cm10 Codi Green RN RN me1
--- NOTE | 2024-05-02 20:54 | ER ---
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 Coronavirus screen: Vaccine status: Patient reports being unvaccinated. Ebola Screen: No symptoms or risks identified at this time. Complicating Factors: There are no complicating factors for this patient. Initial Sepsis Screen: Does the patient meet any 2 criteria? No. Patient's initial sepsis screen is negative. Does the patient have a suspected source of infection? No. Patient's initial sepsis screen is negative. Risk Assessment: Do you want to hurt yourself or someone else? Patient reports no desire to harm self or others. Onset of symptoms was May 02, 2024 at 18:45. 19:11 Method Of Arrival: Ambulatory [facility] 19:11 Acuity: NAZIA 4 me1 Historical: - Allergies: 19:13 No Known Allergies; me1 - PMHx: 19:13 ADD/ADHD; me1 - PSHx: 19:13 None; me1 - Immunization history:: Adult Immunizations unknown, Last tetanus immunization: unknown. - Infectious Disease History:: Denies. - Social history:: Smoking status: Patient reports use of chewing tobacco. Screenin:50 [facility] ED Fall Risk Assessment (Adult) History of falling in the last 3 months, cm10 including since admission No falls in past 3 months (0 pts) Confusion or Disorientation No (0 pts) Intoxicated or Sedated No (0 pts) Impaired Gait No (0 pts) Mobility Assist Device Used No (0 pt) Altered Elimination No (0 pt) Score/Fall Risk Level 0 - 2 = Low Risk Oriented to surroundings, Maintained a safe environment, Hourly rounding (assess needs \T\ fall precautionary measures) done. Abuse screen: Denies threats or abuse. Denies injuries from another. Nutritional screening: No deficits noted. Tuberculosis screening: No symptoms or risk factors identified. Assessment: 19:50 General: Appears uncomfortable, Behavior is calm, cooperative. Pain: Complains of pain cm10 in left hand Pain currently is 3 out of 10 on a pain scale. Neuro: No deficits noted. Level of Consciousness is awake, alert, obeys commands, Oriented to person, place, time, situation, Appropriate for age. Respiratory: No deficits noted. Airway is patent Respiratory effort is even, unlabored, Respiratory pattern is regular, symmetrical. Musculoskeletal: Range of motion: intact in all extremities. Injury Description: Laceration sustained to dorsum of left hand is clean. Vital Signs: 19:11 BP 132 / 83; Pulse 71; Resp 17; Temp 98.3; Pulse Ox 97% ; Weight 78.93 kg; Height 5 ft. me1 9 in. ; Pain 3/10; 19:11 Body Mass Index 25.70 (78.93 kg, 175.26 cm) me1 19:11 Pain Scale: Adult me1 ED Course: 18:40 Patient arrived in ED. mr 18:58 [facility]-C [facility] kb 18:58 Thai Almonte MD is Attending Physician. kb 19:13 Triage completed. me1 19:13 Arm band placed on Patient placed in waiting room. me1 19:20 Ludy Pearce, RN is Primary Nurse. cm10 19:51 Patient has correct armband on for positive identification. Bed in low position. Call cm10 light in reach. Provided Education on: ER process and procedures. 19:52 Assist provider with laceration repair on dorsum of left hand using sutures. Set up cm10 tray. Performed by Raina MOE Patient tolerated well. 21:12 Patient did not have IV access during this emergency room visit. Wound care: to cm10 laceration located on dorsum of left hand was dressed with Neosporin, cling, Patient tolerated well. Administered Medications: 19:49 Drug: Boostrix Tdap IM 0.5 ml IM once; as a single dose Route: IM; Site: left deltoid; cm10 21:00 Follow up: Response: (VIS) Vaccine information sheet provided today. Questions and/or cm10 concerns addressed. VIS edition date: Sep 13, 2020.; No adverse reaction 21:00 Drug: Lidocaine Infiltration (1 %) 1 vials 5 ml Infiltration once; to bedside {Note: cm10 GIVEN BY PROVDIER..} Volume: 5 ml; Route: Infiltration; Medication: 19:49 Vaccine Information Statement (VIS) provided today. Questions and/or concerns cm10 addressed. VIS edition date: September 13, 2020. Outcome: 20:54 Discharge ordered by . jazlyn 21:12 Discharged to home ambulatory, with significant other, cm10 21:12 Condition: good 21:12 Discharge instructions given to patient, Instructed on discharge instructions, follow up and referral plans. wound care, Demonstrated understanding of instructions, follow-up care, wound care, 21:13 Patient left the ED. cm10 Signatures: Raina Garcia, CORRECTIONAL COUNSELOR/CASE MANAGER-C CORRECTIONAL COUNSELOR/CASE MANAGER-CkClarissa Medina, Reg Reg Ludy Bo, RN RN cm10 Codi Green, RN RN me1
[2024-05-02 21:17] VITALS: BP 132/83; TEMP 98.3; O2SAT 97
== END 2024-05-02 21:13 | disposition home or self-care (01) ==
LOC: ER 18:39
DX: S61.412A Laceration without foreign body of left hand, initial encounter (principal); F17.220 Nicotine dependence, chewing tobacco, uncomplicated
CPT/HCPCS: J2003

== ENCOUNTER 2024-05-09 10:10 | Emergency (ER) | payer SELFPAY ==
[2024-05-09] MEDS ORDERED: DERMABOND SKIN ADHESIVE TOP ONE ×2 (10:29→10:37)
--- NOTE | 2024-05-09 11:01 | EDPHYS ---
Physician Documentation [facility] Name: Valentino Leonard Age: 23 yrs Sex: Male : 2000 Arrival Date: 05/09/2024 Time: 10:10 Bed DX3 Private MD: ED Physician Kathryn Hernández HPI: 05/09 10:55 This 23 yrs old Male presents to ER via Ambulatory with complaints of Suture ci Removal. 11:13 This 23 yrs old Male presents to ER via Ambulatory with complaints of Suture ci Removal. 10:55 The patient has. ci 11:13 Patient is a 23-year-old male with PMH ADHD who presents for left hand suture removal. ci Patient sustained a 2cm laceration while working on his car exhaust. Patient had 3 stitches placed on 05/02/24. Historical: - Allergies: 10:20 No Known Allergies; jl7 - PMHx: 10:20 ADD/ADHD; jl7 - Immunization history:: Adult Immunizations unknown. - Infectious Disease History:: Denies. - Social history:: Smoking status: Patient denies any tobacco usage or history of. ROS: 10:55 Constitutional: Negative for fever, chills, and weight loss, Eyes: Negative for injury, ci pain, redness, and discharge, Skin: Negative for injury, rash, and discoloration. Left hand wound 11:13 Cardiovascular: Negative for chest pain, palpitations, ci 11:13 Respiratory: Negative for cough, shortness of breath, Exam: 10:55 Constitutional: This is a well developed, well nourished patient who is awake, alert, ci and in no acute distress. 11:13 Head/Face: Normocephalic, atraumatic. Cardiovascular: Regular rate and rhythm with a ci normal S1 and S2. No gallops, murmurs, or rubs. Normal PMI, no JVD. No pulse deficits. Respiratory: Lungs have equal breath sounds bilaterally, clear to auscultation and percussion. No rales, rhonchi or wheezes noted. No increased work of breathing, no retractions or nasal flaring. 11:13 Musculoskeletal/extremity: ROM: intact in all extremities, Circulation is intact in all extremities. Pulses: are normal with no appreciated deficits, Sensation intact. 11:13 Skin: Wound recheck: Unrepaired laceration: no drainage, no erythema, mild swelling, wound healing well but still gaping, , Vital Signs: 10:19 BP 136 / 92; Pulse 75; Resp 15; Temp 97.1; Pulse Ox 100% ; Pain 0/10; jl7 10:19 Pain Scale: Adult jl7 Procedures: 10:55 Suture/Staple removal: Removed 3 sutures, from left hand, site appears gaping, Wound ci still gaping with no evidence of infection, dressed with Dermabond applied to approximate wound after irrigation with 250 sterile saline. . Patient tolerated well. MDM: 10:19 Medical Screening Exam initiated ci 11:13 Data reviewed: vital signs, nurses notes, old medical records. Test considered but Not ci performed: X-ray: Left hand wound superficial , no foreign bodies visualized . ED course: Patient requesting suture removal so he can go back to work. Patient was advised wsuture removal is in 10 days but continues to request suture removal as he has to go back to work and has been out of a paycheck. 3 sutures removed but appear to be gaping. Wound was cleaned and dermabond applied. Discharged in stable condition to f/u with PCP for wound recheck in 2-3 days. Instructed to keep wound clean and dry, monitor for signs of infection including redness, swelling, drainage, fever. . Administered Medications: No medications were administered Disposition Summary: 05/09/24 11:01 Discharge Ordered Notes: Location: Home ci Problem: an ongoing problem ci Symptoms: have improved ci Condition: Stable ci Diagnosis - Laceration without foreign body of left hand ci - Encounter for removal of sutures ci Followup: ci - With: Private Physician - When: 2 - 3 days - Reason: Wound Recheck, Fever > 102 F Discharge Instructions: - Discharge Summary Sheet ci - Suture Removal, Care After ci - Laceration Care, Adult, Hjjt-lc-[id number] ci Forms: - Work release form ci - Medication Reconciliation Form ci - Antibiotic Education ci - Prescription Opioid Use ci - Patient Portal Instructions ci - Leadership Thank You Letter ci Signatures: Kenneth Lofton RN RN jl7 Kathryn Hernández ci Corrections: (The following items were deleted from the chart) 11:30 10:55 Suture/Staple removal: Removed 3 sutures, from left hand, site appears gaping, ci dressed with Dermabond. Patient tolerated well, ci
--- NOTE | 2024-05-09 11:01 | ER ---
Nurse's Notes [facility] Name: Valentino Leonard Age: 23 yrs Sex: Male : 2000 Arrival Date: 05/09/2024 Time: 10:10 Bed DX3 Private MD: Diagnosis: Laceration without foreign body of left hand;Encounter for removal of sutures Presentation: 05/09 10:19 Chief complaint: Patient states: Sutures to left hand placed 7 days ago. Coronavirus jl7 screen: At this time, the client does not indicate any symptoms associated with coronavirus-19. Ebola Screen: No symptoms or risks identified at this time. Initial Sepsis Screen: Does the patient meet any 2 criteria? No. Patient's initial sepsis screen is negative. Does the patient have a suspected source of infection? No. Patient's initial sepsis screen is negative. Risk Assessment: Do you want to hurt yourself or someone else? Patient reports no desire to harm self or others. Onset of symptoms was May 02, 2024. 10:19 Method Of Arrival: Ambulatory jl7 10:19 Acuity: NAZAI 4 jl7 Triage Assessment: 10:20 General: Appears in no apparent distress. comfortable, Behavior is calm, cooperative, jl7 appropriate for age. Pain: Denies pain. Derm: Skin is pink, warm \T\ dry. Historical: - Allergies: 10:20 No Known Allergies; jl7 - PMHx: 10:20 ADD/ADHD; jl7 - Immunization history:: Adult Immunizations unknown. - Infectious Disease History:: Denies. - Social history:: Smoking status: Patient denies any tobacco usage or history of. Screenin:21 [facility] ED Fall Risk Assessment (Adult) History of falling in the last 3 months, jl7 including since admission No falls in past 3 months (0 pts) Confusion or Disorientation No (0 pts) Intoxicated or Sedated No (0 pts) Impaired Gait No (0 pts) Mobility Assist Device Used No (0 pt) Altered Elimination No (0 pt) Score/Fall Risk Level 0 - 2 = Low Risk Oriented to surroundings, Maintained a safe environment. Abuse screen: Denies threats or abuse. Denies injuries from another. Nutritional screening: No deficits noted. Tuberculosis screening: No symptoms or risk factors identified. Vital Signs: 10:19 BP 136 / 92; Pulse 75; Resp 15; Temp 97.1; Pulse Ox 100% ; Pain 0/10; jl7 10:19 Pain Scale: Adult jl7 ED Course: 10:12 Patient arrived in ED. mr 10:18 Kathryn Hernández is Attending Physician. ci 10:20 Triage completed. jl7 10:20 Arm band placed on right wrist. jl7 10:21 Patient has correct armband on for positive identification. jl7 11:18 Provided Education on: discharge. jl7 11:18 No provider procedures requiring assistance completed. Patient did not have IV access jl7 during this emergency room visit. Administered Medications: No medications were administered Medication: 10:21 VIS not applicable for this client. jl7 Outcome: 11:01 Discharge ordered by . ci 11:18 Discharged to home ambulatory, jl7 11:18 Condition: stable 11:18 Discharge instructions given to patient, Instructed on discharge instructions, follow up and referral plans. Demonstrated understanding of instructions, follow-up care, 11:19 Patient left the ED. jl7 Signatures: Clarissa Harding, Reg Reg Kenneth Gongora RN RN Kathryn Larsen ci
[2024-05-09 11:24] VITALS: BP 136/92; TEMP 97.1; O2SAT 100
== END 2024-05-09 11:19 | disposition home or self-care (01) ==
LOC: ER 10:10
DX: Z48.02 Encounter for removal of sutures (principal)
CPT/HCPCS: 99282

== ENCOUNTER 2024-09-26 17:38 | Emergency (ER) | payer SELFPAY ==
--- OUTSIDE RECORDS SUMMARY | 2024-09-26 17:41 | XMS REPORT | Continuity of Care Document ---
Author Name Unknown Address [address] [place] [address] [facility] [place] Address [address] [place] [address] Care Team Providers Care Morphology Teacher Name Role Phone PCP, PATIENT DOES NOT HAVE A Primary Care Physic billie Unavailable SOHAIL GRFAF Attending Clinician Unavailable SOHAIL GRAFF Attending Clinician Unavailable Sohail Graff DO Attending Clinician [phone] Allergies, Adverse Reactions, Alerts Allergy Name Allergy Type Status Severity Reaction(s) Onset Date Inactive Date Treating Clinician Comments Source NO KNOWN ALLERGIE S Drug Class Active [facility] Social History Social Habit Start Date Stop Date Quantity Comments Source Sexual orientation [facility] Sex assigned at 2000 00:00:00 2000 00:00:00 [facility] Smoking Status Start Date Stop Date Source Tobacco smoking consumption unknown [facility] Vital Signs Vital Name Observation Time Observation Value Comments S kieran Systolic blood pressure 2024-05-11 21:59:00 143 mm[Hg] [facility] Diastolic blood pressure 2024-05-11 21:59:00 83 mm[Hg] [facility] Heart rate 2024-05-11 21:59:00 83 /min [facility] Body temperature 2024-05-11 21:59:00 37.11 Pati [facility] Respiratory rate 2024-05-11 21:59:00 18 /min [facility] Body height 2024-05-11 21:59:00 175.3 cm [facility] Body weight 2024-05-11 21:59:00 77.111 kg [facility] BMI 2024-05-11 21:59:00 25.10 kg/m2 [facility] Oxygen saturation in Arterial blood by Pulse oximetry 2024-05-11 21:59:00 100 /min [facility] Encounters Start Date/Time End Date/Time Encounter Type Admission Type Attending Clinicians Care Facility Care Department Encounter ID Source 2024-05-11 17:01:00 2024-05-11 17:49:00 Emergency X SOHAIL GRAFF SOHAIL BETHANY ERT [id number] [facility] 2024-05-11 17:01:00 2024-05-11 17:49:00 Emergency Sohail Graff [facility] AT [facility] [id number] [facility] Notes Date/Time Note Provider Source 2024-05-11 17:40:21 Pt given printed and verbal discharge instructions regarding laceration of left hand, encouraged hydration, 0 Prescriptions provided Pt verbalized understanding of instructions, pt awake alert oriented, resp reg unlabored, skin w/d, color appropriate for race, moves all ext well,pt encouraged to follow up with pcp and hand Advised to seek medical attention for new/prolonged/worsening of symptoms, Symptoms improved. Awake, alert oriented, resp reg unlabored, skin w/d, pt leaving amb with steady gait, in no apparent distress, [facility] [place] 2024-05-11 16:58:27 Patient arrived ambulatory c/o having a laceration to his left hand that he got stiches from 1 day ago. Patient would like the wound to be checked and needs a work note clearing him to go to work. Not actively bleeding. No redness or drainage noted from the site. [facility] 2024-05-11 16:47:00 [facility] Emergency Department Note Patient Name: Valentino Leonard Date of : 2000 23 year old male Treatment [facility] Primary Care Physician: Jing Berry Patient Escorted by: Family [5] Mode of Arrival: Personal means [1] EMS Treatment Prior to ED Arrival: IN HOME [facility] treatment: None Travel and Exposure Screening: Symptoms Does patient have any of these symptoms?: (not recorded) Exposure Screening Has patient had contact with someone with a communicable disease in the last month?: (not recorded) Diseases exposed to:: (not recorded) Is Patient ?: (not recorded) Exposure Date: (not recorded) Chief Complaint: Chief Complaint Patient presents with Wound Check History of Present Illness: This patient relates that 8 days ago he had a left hand laceration closed at an outside facility. The patient relates she had stitches removed yesterday and is concerned about some separation of the skin edges. The patient was seen by the outside emergency department and had Dermabond placed. He presents to this emergency department today because he wants to go back to work and needs a statement. The patient does not relate fever, redness or increase in discomfort. Past Medical History/Immunizations: No past medical history on file. Tetanus received in last 5 years: Yes Childhood immunizations: Up-to-date Allergies: No Known Allergies Past Social History: Substance & Sexual Activity No substance use or sexual activity history on file. Past Surgical History: No past surgical history on file. Review of Systems: Review of Systems Constitutional: Negative for activity change, fatigue and fever. Skin: Positive for wound. Negative for color change. Physical Exam: ED Triage Vitals [05/11/24 1659] Weight 77.1 kg (170 lb) Actual or estimated Estimated by patient/family report Height 1.753 m (5' 9") BP (!) 143/83 Pulse 83 Resp 18 Temp 37.1 ?C (98.8 ?F) Temp source Oral SpO2 100 % Measured on Room air Physical Exam Cardiovascular: Pulses: Normal pulses. Musculoskeletal: Comments: The patient has a laceration over the dorsal aspect of the proximal aspect of second metacarpal. There is no surrounding redness. There is no drainage. There is only mild swelling. Extension of fingers and hand are intact. There is no clear suggestion of tendon injury. Neurological: Mental Status: He is alert. Radiology: No orders to display Lab Results: Lab Results - No data to display EKG: If EKG completed, see Procedure Note. Orders and Treatments: No orders of the defined types were placed in this encounter. No orders of the defined types were placed in this encounter. First Provider Eval: ED Events Date/Time Event User Comments 05/11/24 1728 Medical Screening Begins SOHAIL GRAFF DO -- 05/11/24 172 First Provider Evaluation SOHAIL GRAFF DO -- ED COURSE Diagnosis/Impression as of 05/11/24 173 Laceration of left hand, foreign body presence unspecified, sequela Procedures: Procedures MDM: Medical Decision Making The patient's hand was reviewed for suggestion of severe infection, tendon injury or other deep structural involvement. Flowsheet Documentation: Scoring Tools: No data recorded Disposition/Condition: ED Disposition ED Disposition Discharge Condition Stable Comment -- Discharge Medications: Patient's Medications No medications on file Follow-up: Contact information for follow-up Jing Berry MD Specialty: PEDIATRICS-PHYSICIAN MEDICINE Relationship: PCP - General [facility] [address] [place] [phone] Instructions: As needed Electronically signed by: Sohail Graff DO 05/11/241735 [facility]
--- NOTE | 2024-09-26 18:13 | EDPHYS ---
Physician Documentation [facility] Name: Valentino Leonard Age: 23 yrs Sex: Male : 2000 Arrival Date: 09/26/2024 Time: 17:38 Bed 9 Private MD: ED Physician Suzi Chapa HPI: 09/26 17:56 This 23 yrs old Male presents to ER via Ambulatory with complaints of Sore dr5 Throat. 17:56 Onset: The symptoms/episode began/occurred yesterday. Patient is a 22-year-old male dr5 with no past medical history coming in with sore throat this been going on for the past 2 months. Patient reports that his pain got worse yesterday. Patient reports that last week he took his 's cefdinir which helped his symptoms. Patient denies fever, nasal congestion, cough, chest pain, abdominal pain, nausea, vomiting, diarrhea.. Historical: - Allergies: 17:46 No Known Allergies; dd2 - PMHx: 17:46 ADD/ADHD; dd2 - PSHx: 17:46 None; dd2 - Immunization history:: Adult Immunizations up to date. - Infectious Disease History:: Denies. - Social history:: Smoking status: Reported history of juuling and/or vaping. ROS: 17:56 Constitutional: as per hpi dr5 Exam: 17:56 Constitutional: This is a well developed, well nourished patient who is awake, alert, dr5 and in no acute distress. Head/Face: Normocephalic, atraumatic. Eyes: Pupils equal round and reactive to light, extra-ocular motions intact. Lids and lashes normal. Conjunctiva and sclera are non-icteric and not injected. Cornea within normal limits. Periorbital areas with no swelling, redness, or edema. Chest/axilla: Normal chest wall appearance and motion. Nontender with no deformity. No lesions are appreciated. Cardiovascular: Regular rate and rhythm with a normal S1 and S2. Normal PMI, no JVD. No pulse deficits. Respiratory: Lungs have equal breath sounds bilaterally, clear to auscultation. No rales, rhonchi or wheezes noted. No increased work of breathing, no retractions or nasal flaring. Abdomen/GI: Soft, non-tender, non-distended Back: No spinal tenderness. No costovertebral tenderness. Full range of motion. Skin: Warm, dry with normal turgor. Normal color with no rashes, no lesions, and no evidence of cellulitis. MS/ Extremity: Pulses equal, no cyanosis. Neurovascular intact. Full, normal range of motion. Neuro: Awake and alert, GCS 15, oriented to person, place, time, and situation. Cranial nerves II-XII grossly intact. Motor strength 5/5 in all extremities. Sensory grossly intact. Cerebellar exam normal. Normal gait. 17:56 ENT: External ear(s): are unremarkable, Ear canal(s): are normal, TM's: are normal, no acute changes, Posterior pharynx: Airway: normal, no evidence of obstruction, Tonsils: bilaterally enlarged, Uvula: normal, midline, Vital Signs: 17:43 BP 141 / 89; Pulse 81; Resp 16; Temp 98.6; Pulse Ox 100% ; Weight 79.38 kg; Pain 7/10; dd2 17:43 Pain Scale: Adult dd2 Amarilis Coma Score: 17:48 Eye Response: spontaneous(4). Motor Response: obeys commands(6). Verbal Response: dd2 oriented(5). Total: 15. MDM: 17:43 Medical Screening Exam initiated dr5 19:41 Differential diagnosis: Allergic rhinitis, bronchitis, epiglottitis, tonsillitis, upper dr5 respiratory infection, Strep throat. Data reviewed: vital signs, nurses notes, lab test result(s), Strep negative. Consideration of Admission/Observation Escalation of care including admission/observation considered. 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 I considered the following discharge prescriptions or medication management in the emergency department I discussed and recommended Over The Counter medications. Care significantly affected by the following chronic conditions: ADD. Care significantly affected by the following Social Determinants of Health: Poor access to healthcare and/or lack of insurance, Poor access to transportation, Problems related to employment. Counseling: I had a detailed discussion with the patient and/or guardian regarding the historical points, exam findings, and any diagnostic results supporting the discharge/admit diagnosis, the presence of at least one elevated blood pressure reading (>120/80) during this emergency department visit, lab results, the need for outpatient follow up, for definitive care, an ENT specialist, a family practitioner, to return to the emergency department if symptoms worsen or persist or if there are any questions or concerns that arise at home. Special discussion: I have referred the patient to see his PCP for further evaluation of high blood pressure. I discussed with the patient/guardian in detail that at this point there is no indication for admission to the hospital. It is understood, however, that if the symptoms persist or worsen the patient needs to return immediately for re-evaluation. Based on the history and exam findings, there is no indication for further emergent testing or inpatient evaluation. I discussed with the patient/guardian the need to see the primary care provider for further evaluation of the symptoms. ED course: Strep was negative. Will treat patient for tonsillitis with amoxicillin and give steroid pack for inflammation. All questions answered. Recommended gargling warm salt water. Alternate Tylenol and Motrin as needed for pain and fever. Strict ER precautions given. All questions answered.. 09/26 17:49 Order name: Group A Streptococcus Rapid; Complete Time: 18:13 dr5 09/26 18:13 Order name: Throat Culture EDMS Administered Medications: No medications were administered Disposition Summary: 09/26/24 18:13 Discharge Ordered Notes: Location: Home dr5 Condition: Stable dr5 Diagnosis - Acute tonsillitis, unspecified dr5 Followup: dr5 - With: Emergency Department - When: As needed - Reason: Worsening of condition Followup: dr5 - With: Private Physician - When: 1 - 2 days - Reason: Recheck today's complaints, Continuance of care, Re-evaluation by your physician Discharge Instructions: - Discharge Summary Sheet dr5 - Tonsillitis dr5 Forms: - Medication Reconciliation Form dr5 - Antibiotic Education dr5 - Patient Portal Instructions dr5 - Leadership Thank You Letter dr5 Prescriptions: - Amoxicillin 500 mg Oral capsule - take 1 capsule ORAL route every 12 hours for 10 days; 20 tablet; Refills: 0, dr5 Product Selection Permitted - Medrol ([place]) 4 mg Oral Tablets, Dose Pack - take 1 tablet ORAL route as directed - follow package instructions; 1 packet; dr5 Refills: 0, Product Selection Permitted Signatures: Dispatcher [employer] CHELITA PINEDO RN RN dd2 Lucas Montgomery, TIFFANY-C COMPLAINT CLERK-Cdr5
--- NOTE | 2024-09-26 18:13 | ER ---
Nurse's Notes [facility] Name: Valentino Leonard Age: 23 yrs Sex: Male : 2000 Arrival Date: 09/26/2024 Time: 17:38 Bed 9 Private MD: Diagnosis: Acute tonsillitis, unspecified Presentation: 09/26 17:43 Chief complaint: Patient states: HE HAS HAD RED BUMPS, LOSE OF VOICE AND PAIN WHEN dd2 SWALLOWING FOR ABOUT 2 MONTHS. Coronavirus screen: At this time, the client does not indicate any symptoms associated with coronavirus-19. Ebola Screen: No symptoms or risks identified at this time. Initial Sepsis Screen: Does the patient meet any 2 criteria? No. Patient's initial sepsis screen is negative. Does the patient have a suspected source of infection? No. Patient's initial sepsis screen is negative. Risk Assessment: Do you want to hurt yourself or someone else? Patient reports no desire to harm self or others. Onset of symptoms is unknown. 17:43 Method Of Arrival: Ambulatory dd2 17:43 Acuity: NAZIA 4 dd2 Triage Assessment: 17:46 General: Appears in no apparent distress. Behavior is calm, cooperative, appropriate dd2 for age. Pain: Complains of pain in THROAT Pain currently is 7 out of 10 on a pain scale. EENT: Throat is reddened Reports pain when swallowing. 17:47 Neuro: No deficits noted. Cardiovascular: No deficits noted. Respiratory: No deficits dd2 noted. GI: No deficits noted. No signs and/or symptoms were reported involving the gastrointestinal system. : No deficits noted. No signs and/or symptoms were reported regarding the genitourinary system. Derm: No deficits noted. No signs and/or symptoms reported regarding the dermatologic system. Musculoskeletal: No deficits noted. No signs and/or symptoms reported regarding the musculoskeletal system. Historical: - Allergies: 17:46 No Known Allergies; dd2 - PMHx: 17:46 ADD/ADHD; dd2 - PSHx: 17:46 None; dd2 - Immunization history:: Adult Immunizations up to date. - Infectious Disease History:: Denies. - Social history:: Smoking status: Reported history of juuling and/or vaping. Screenin:48 [facility] ED Fall Risk Assessment (Adult) History of falling in the last 3 months, dd2 including since admission No falls in past 3 months (0 pts) Confusion or Disorientation No (0 pts) Intoxicated or Sedated No (0 pts) Impaired Gait No (0 pts) Mobility Assist Device Used No (0 pt) Altered Elimination No (0 pt) Score/Fall Risk Level 0 - 2 = Low Risk Oriented to surroundings, Maintained a safe environment, Educated pt \T\ family on fall prevention, incl call for assistance when getting out of bed, Assessed \T\ reinforced patient's understanding of fall precautions, Hourly rounding (assess needs \T\ fall precautionary measures) done. Abuse screen: Denies threats or abuse. Denies injuries from another. Nutritional screening: No deficits noted. Tuberculosis screening: No symptoms or risk factors identified. Assessment: 17:48 Reassessment: SEE TRIAGE ASSESSMENT FOR FULL ASSESSMENT. dd2 18:28 Respiratory: Airway is patent Respiratory effort is even, unlabored, Breath sounds are dd2 clear. Vital Signs: 17:43 BP 141 / 89; Pulse 81; Resp 16; Temp 98.6; Pulse Ox 100% ; Weight 79.38 kg; Pain 7/10; dd2 17:43 Pain Scale: Adult dd2 Amarilis Coma Score: 17:48 Eye Response: spontaneous(4). Motor Response: obeys commands(6). Verbal Response: dd2 oriented(5). Total: 15. ED Course: 17:42 Patient arrived in ED. im 17:43 [facility]C [facility]. dr5 17:43 Suzi Chapa MD is Attending Physician. dr5 17:46 Triage completed. dd2 17:46 Arm band placed on left wrist. dd2 17:48 Patient has correct armband on for positive identification. Bed in low position. Call dd2 light in reach. Client placed on continuous cardiac and pulse oximetry monitoring. NIBP monitoring applied. 17:48 No provider procedures requiring assistance completed. Patient did not have IV access dd2 during this emergency room visit. 18:27 Provided Education on: D/C EDUCATION. dd2 Administered Medications: No medications were administered Medication: 17:48 VIS not applicable for this client. dd2 Outcome: 18:13 Discharge ordered by . dr5 18:27 Discharged to home ambulatory, dd2 18:27 Condition: stable 18:27 Discharge instructions given to patient, Instructed on discharge instructions, follow up and referral plans. medication usage, Demonstrated understanding of instructions, follow-up care, medications, Prescriptions given X 2, 18:28 Patient left the ED. dd2 Signatures: Minal Cruz DIANA, RN RN dd2 Lucas Montgomery, SAP PP CONSULTANT-C SAP PP CONSULTANT-Cdr5
[2024-09-26 22:15] VITALS: BP 141/89; TEMP 98.6; O2SAT 100
== END 2024-09-26 18:28 | disposition home or self-care (01) ==
LOC: ER 17:38
DX: J03.90 Acute tonsillitis, unspecified (principal)
CPT/HCPCS: 36415; 87070; 99283

== ENCOUNTER 2024-10-03 17:43 | Emergency (ER) | payer SELFPAY ==
[2024-10-03] MEDS ORDERED: ONDANSETRON 4 MG (ODT) TAB ONE (17:46)
--- NOTE | 2024-10-03 17:56 | EDPHYS ---
Physician Documentation [facility] Name: Valentino Leonard Age: 23 yrs Sex: Male : 2000 Arrival Date: 10/03/2024 Time: 17:43 Bed IW1 Private MD: ED Physician Oniel Mcdaniel HPI: 10/03 17:52 This 23 yrs old Male presents to ER via Unassigned with complaints of kb Abdominal Pain. 17:52 Pt is a 23 year old male who presents for abd pain, n/v/d for 2 days. States he kb believes it is a stomach bug but his work won't let him return until he gets checked out. Denies pain at this time . Historical: - Allergies: 17:58 No Known Allergies; jl7 - PMHx: 17:58 ADD/ADHD; jl7 - PSHx: 17:58 None; jl7 - Immunization history:: Adult Immunizations up to date. - Infectious Disease History:: Denies. - Social history:: Smoking status: Reported history of juuling and/or vaping. ROS: 17:53 Constitutional: As per HPI kb Exam: 17:53 Constitutional: This is a well developed, well nourished patient who is awake, alert, kb and in no acute distress. Head/Face: Normocephalic, atraumatic. ENT: Moist Mucous membranes Cardiovascular: Regular rate Respiratory: Respirations even and unlabored. No increased work of breathing. Talking in full sentences Abdomen/GI: Soft, non-tender. No distention Skin: Warm, dry with normal turgor. Normal color. MS/ Extremity: Pulses equal, no cyanosis. Neurovascular intact. Full, normal range of motion. Neuro: Awake and alert, GCS 15, oriented to person, place, time, and situation. Vital Signs: 17:56 BP 129 / 83; Pulse 63; Resp 17; Temp 98; Pulse Ox 98% ; Height 5 ft. 9 in. ; Pain 0/10; jl7 17:56 Pain Scale: Adult jl7 MDM: 17:45 Medical Screening Exam initiated kb 17:53 Data reviewed: vital signs, nurses notes. kb 17:54 Differential diagnosis: non-specific abd pain, gastroenteritis, dehydration, abnormal kb electrolytes. Test considered but Not performed: Labs: cbc, cmp, lipase considered but pt does not want any needle sticks. Requests nausea medication and a work note only. Counseling: I had a detailed discussion with the patient and/or guardian regarding the historical points, exam findings, and any diagnostic results supporting the discharge/admit diagnosis, the need for outpatient follow up, a family practitioner, to return to the emergency department if symptoms worsen or persist or if there are any questions or concerns that arise at home. Administered Medications: 17:56 Drug: Ondansetron Oral Disintegrating Tablet Oral Disintegrating Tablet 4 mg PO once jl7 Route: PO; 17:59 Follow up: Response: Medication administered at discharge. jl7 Disposition: 18:26 Co-signature as Attending Physician, Oniel Mcdaniel MD I reviewed the patient's care rn provided by the Advanced Practice Provider and agree with the diagnosis and treatment plan. Disposition Summary: 10/03/24 17:55 Discharge Ordered Notes: Location: Home kb Condition: Stable kb Diagnosis - Nausea with vomiting, unspecified kb - Diarrhea, unspecified kb Followup: kb - With: Emergency Department - When: As needed - Reason: Worsening of condition Followup: kb - With: Private Physician - When: 2 - 3 days - Reason: Recheck today's complaints, Continuance of care, Re-evaluation by your physician Discharge Instructions: - Discharge Summary Sheet kb - Viral Gastroenteritis, Adult, [id number] kb Forms: - Work release form kb - Medication Reconciliation Form kb - Antibiotic Education kb - Prescription Opioid Use kb - Patient Portal Instructions kb - Leadership Thank You Letter kb Prescriptions: - ondansetron 4 mg Oral Tablet,disintegrating - take 1 tablet ORAL route every 6 hours as needed for nausea and vomiting; 12 kb tablet; Refills: 0, Product Selection Permitted Signatures: Raina Garcia, PLASTER BLOCK LAYER-C PLASTER BLOCK LAYER-Oniel Casanova MD MD rn Leal, Jahala, RN RN jl7
--- NOTE | 2024-10-03 18:01 | ER ---
Nurse's Notes [facility] Name: Valentino Leonard Age: 23 yrs Sex: Male : 2000 Arrival Date: 10/03/2024 Time: 17:43 Bed IW1 Private MD: Diagnosis: Nausea with vomiting, unspecified;Diarrhea, unspecified Presentation: 10/03 17:56 Chief complaint: Patient states: N/V/D x 2 days. Coronavirus screen: At this time, the jl7 client does not indicate any symptoms associated with coronavirus-19. Ebola Screen: No symptoms or risks identified at this time. Initial Sepsis Screen: Does the patient meet any 2 criteria? No. Patient's initial sepsis screen is negative. Does the patient have a suspected source of infection? No. Patient's initial sepsis screen is negative. Risk Assessment: Do you want to hurt yourself or someone else? Patient reports no desire to harm self or others. Onset of symptoms was October 01, 2024. 17:56 Method Of Arrival: Ambulatory [facility] 17:56 Acuity: NAZIA 3 jl7 Triage Assessment: 17:58 General: Appears in no apparent distress. uncomfortable, Behavior is calm, cooperative, jl7 appropriate for age. Pain: Denies pain. GI: Reports diarrhea, nausea, vomiting. Historical: - Allergies: 17:58 No Known Allergies; jl7 - PMHx: 17:58 ADD/ADHD; jl7 - PSHx: 17:58 None; jl7 - Immunization history:: Adult Immunizations up to date. - Infectious Disease History:: Denies. - Social history:: Smoking status: Reported history of juuling and/or vaping. Screenin:59 [facility] ED Fall Risk Assessment (Adult) History of falling in the last 3 months, jl7 including since admission No falls in past 3 months (0 pts) Confusion or Disorientation No (0 pts) Intoxicated or Sedated No (0 pts) Impaired Gait No (0 pts) Mobility Assist Device Used No (0 pt) Altered Elimination No (0 pt) Score/Fall Risk Level 0 - 2 = Low Risk Oriented to surroundings, Maintained a safe environment. Abuse screen: Denies threats or abuse. Denies injuries from another. Nutritional screening: No deficits noted. Tuberculosis screening: No symptoms or risk factors identified. Vital Signs: 17:56 BP 129 / 83; Pulse 63; Resp 17; Temp 98; Pulse Ox 98% ; Height 5 ft. 9 in. ; Pain 0/10; jl7 17:56 Pain Scale: Adult jl7 ED Course: 17:44 Patient arrived in ED. am2 17:45 Raina Garcia FNP-C is [facility]. kb 17:45 Oniel Mcdaniel MD is Attending Physician. kb 17:56 Kenneth Lofton, RN is Primary Nurse. jl7 17:57 Triage completed. jl7 17:58 Arm band placed on right wrist. jl7 17:59 Patient has correct armband on for positive identification. Provided Education on: jl7 discharge. 17:59 No provider procedures requiring assistance completed. Patient did not have IV access jl7 during this emergency room visit. Administered Medications: 17:56 Drug: Ondansetron Oral Disintegrating Tablet Oral Disintegrating Tablet 4 mg PO once jl7 Route: PO; 17:59 Follow up: Response: Medication administered at discharge. jl7 Medication: 17:59 VIS not applicable for this client. jl7 Outcome: 17:55 Discharge ordered by MD. kb 17:59 Discharged to home ambulatory, jl7 17:59 Condition: stable 17:59 Discharge instructions given to patient, Instructed on discharge instructions, follow up and referral plans. medication usage, Demonstrated understanding of instructions, follow-up care, medications, Prescriptions given X 1, 18:00 Patient left the ED. jl7 Signatures: Raina Garcia FNP-C PLANT PRODUCTION MANAGER-Ckb Kenneth Lofton RN RN jl7 Teri Rodriguez am2
[2024-10-03 21:23] VITALS: BP 129/83; TEMP 98; O2SAT 98
== END 2024-10-03 18:00 | disposition home or self-care (01) ==
LOC: ER 17:43
DX: R11.2 Nausea with vomiting, unspecified (principal); R19.7 Diarrhea, unspecified
CPT/HCPCS: Q0162